=== PATIENT | female | born 1960 | race Caucasian/White ===

== ENCOUNTER → 2019-01-08 10:15 | Outpatient (CLI) | payer BC, SELFPAY ==
--- NOTE | 2019-01-08 10:17 | CA_ITS ---
PROCEDURE: 2-D M-mode and color Doppler study INDICATIONS FOR THE TEST: Chest pain COPD Heart Murmur Tobacco Smoking Palpitations Fatigue Syncope Edema Hypertension+Diabetes Mellitus Rheumatic Fever SOB DIAZ+Obesity+Hyperlipidemia+ Family History HD Additional History cad PATIENT INFORMATION HEIGHT: 60 WEIGHT:197 GENDER: Female B/P:112/76 2-D/M-MODE INTERPRETATION: 2-D MEASUREMENTS OBSERVED VALUES IN CMS Right Ventricular Dimension (RVDd) 2.9 Interventricular Septum (Thickness)(IVsd) 1.1 Left Ventricular Internal Dimensions(LVIDd) 5.2/3.9 Left Ventricular Posterior Wall (Thickness)(LVPWd) 1.1 Aortic Root 2.6 Aortic Cusp Separation 1.8 Left Atrial Dimensions (LAD) 3.8 2D 1. Left atrium is mildly enlarged, left ventricle is normal size, mild concentric left ventricular hypertrophy, visually estimated ejection fraction 55% with no regional wall motion abnormality. 2. The right atrium and right ventricle are mildly enlarged with normal contractility. 3. The aortic valve is minimally thickened and fibrosed. 4. The mitral and tricuspid valve leaflets are minimally thickened. 5. The pulmonic valve is poorly visualized. 6. No significant pericardial effusion noted. DOPPLER INTERROGATION: Doppler interrogation of the aortic, mitral and tricuspid valvular presence of mildly increased aortic out flow velocity does not represent significant aortic stenosis, there is mild mitral and tricuspid regurgitation, tricuspid and jet velocity is inadequate for admission of the right ventricular systolic pressure, grade 1 diastolic dysfunction seen with tissue Doppler evidence of raised left atrial pressure, inferior vena cava is not well visualized. CONCLUSION: 1. Mildly enlarged left atrium, normal left ventricular size, mild concentric left ventricular hypertrophy, visually estimated ejection fraction 55% no regional wall motion abnormality, grade 1 diastolic dysfunction seen with tissue Doppler evidence of raised left atrial pressure. 2. Mildly enlarged right ventricle with normal contractility. 3. Mild mitral and tricuspid regurgitation. 4. No significant pericardial effusion noted.
== END ==
PROVIDERS: PCP Family Medicine; Visit Provider Internal Medicine
DX: I25.10 Atherosclerotic heart disease of native coronary artery without angina pectoris (principal); R00.1 Bradycardia, unspecified; E78.5 Hyperlipidemia, unspecified; I10 Essential (primary) hypertension
CPT/HCPCS: 93306

== ENCOUNTER → 2021-05-05 07:51 | Outpatient (CLI) | payer BC, SELFPAY ==
--- NOTE | 2021-05-05 07:58 | US_ITS ---
PROCEDURE: US LIVER CLINICAL INDICATION: ELEVATED LIVER FUNCTION COMPARISON: No exams were available for comparison FINDINGS: PANCREAS: Unremarkable. No obvious mass or abnormal fluid collection. No ductal dilatation LIVER: Diffuse increased echogenicity of the liver with poor through transmission of sound consistent with hepatic steatosis. No focal liver lesion demonstrated. There is appropriate direction of blood flow within non dilated portal vein. RIGHT KIDNEY: There is minimal ectasia of the right renal collecting system. No renal mass apparent GALLBLADDER: No gallstones, gallbladder wall thickening, pericholecystic fluid, or biliary dilatation. IMPRESSION: Negative gallbladder. Minimal ectasia of the collecting system. Fatty liver Dictated by: Wilfred Stewart MD 05/05/2021 15:12 Wilfred Stewart MD in OV 05/05/2021 15:12
== END ==
PROVIDERS: PCP Family Medicine; Visit Provider Family Medicine
DX: R79.89 Other specified abnormal findings of blood chemistry (principal); R94.5 Abnormal results of liver function studies
CPT/HCPCS: 76705

== ENCOUNTER → 2021-06-29 08:58 | Outpatient (CLI) | payer BC, SELFPAY ==
[2021-06-29 09:57] LABS: Basophils # 0.1 K/mm3 (0-0.2); Basophils % 1.2 % (0.1-2.0); Eosinophils # 0.2 K/mm3 (0.0-0.4); Eosinophils % 2.1 % (0.1-12.0); Hemoglobin 15.1 g/dL (12.2-16.2); Lymphocytes # 3.1 K/mm3 (0.7-4.5); Mean Corpuscular HGB Conc 34.3 g/dL (31.8-35.4); Mean Corpuscular Hemoglobin 29.8 pg (27.0-31.2); Mean Platelet Volume 10.3 fl (7.4-10.4); Monocytes # 0.6 K/mm3 (0.1-1.0); Monocytes % 6.8 % (1.7-9.3); Neutrophils # 5.1 K/mm3 (1.8-7.8); Neutrophils % 55.8 % (37.0-80.0); Platelet Count 232 K/mm3 (142-424); Red Blood Count 5.06 M/mm3 (4.20-5.40); Red Cell Distribution Width 13.9 % (11.5-17.5); White Blood Count 9.2 K/mm3 (4.8-10.8)
[2021-06-29 10:07] LABS: INR 0.92 (0.9-1.1); Prothrombin Time 10.5 seconds (10.1-12.5)
[2021-06-29 10:25] LABS: Chloride 104 mmol/L (98-107)
[2021-06-29 10:26] LABS: Potassium 4.3 mmoL/L (3.5-5.1); Sodium 140 mmol/L (136-145)
[2021-06-29 10:28] LABS: Blood Urea Nitrogen 16 mg/dl (7-17); Estimated Glomerular Filt Rate 101 ml/min (>60); GFR (African American) 122 ML/MIN (>60)
[2021-06-29 10:29] LABS: Alanine Aminotransferase 34 U/L (12-78); Albumin Level 4.5 g/dl (3.5-5.0); Albumin/Globulin Ratio 1.6 (1.1-1.8); Alkaline Phosphatase 64 U/L (38-126); Anion Gap 15.3 mEq/L (5-15); Aspartate Amino Transferase 32 U/L (14-36); Bilirubin,Total 0.7 mg/dl (0.2-1.3); Calcium 9.2 mg/dl (8.4-10.2); Carbon Dioxide 25 mmol/L (22.0-30.0); Globulin 2.8 g/dL (1.3-3.2); Glucose 127 mg/dl (74-100); Iron 66 ug/dL (37-170); Total Protein,Serum 7.3 g/dl (6.3-8.2)
[2021-06-29 10:40] LABS: Total Iron Binding Capacity 445 ug/dL (265-497)
[2021-06-30 09:13] LABS: Ceruloplasmin 23.5 mg/dL (19.0-39.0); Immunoglobulin A, Qn 290 mg/dL (87-352); Immunoglobulin G, Qn 1061 mg/dL (586-1602); Immunoglobulin M, Qn 62 mg/dL (26-217)
[2021-06-30 14:31] LABS: Angiotensin Converting Enzyme 33 U/L (14-82); Liver-Kidney Microsomal Ab 4.2 Units (0.0-20.0)
[2021-06-30 15:37] LABS: Mitochondrial (M2) Antibody <20.0 Units (0.0-20.0)
[2021-06-30 16:12] LABS: Deamidated Gliadin Abs, IgA 7 units (0-19); Deamidated Gliadin Abs, IgG 1 units (0-19); Tissue Transglutaminase IgA Ab <2 U/mL (0-3); Tissue Transglutaminase IgG Ab <2 U/mL (0-5)
[2021-06-30 19:11] LABS: Endomysial IgA Antibody Negative (Negative)
[2021-07-01 02:10] LABS: ALT (SGPT) P5P 32 IU/L (0-40); AST (SGOT) P5P 25 IU/L (0-40); Alpha 2-Macroglobulins, Qn 118 mg/dL (110-276); Apolipoprotein A-1 126 mg/dL (116-209); Bilirubin, Total 0.6 mg/dL (0.0-1.2); Cholesterol, Total 130 mg/dL (100-199); Fibrosis Score 0.13 (0.00-0.21); GGT 49 IU/L (0-60); Glucose 122 mg/dL (65-99); Haptoglobin 218 mg/dL (37-355); Steatosis Score 0.82 (0.00-0.30); Triglycerides 134 mg/dL (0-149)
[2021-07-01 06:11] LABS: Reticulin IgA Antibody Negative titer (Neg:<1:2.5)
[2021-07-04 15:32] LABS: Alpha-1-Antitrypsin 135 mg/dL (101-187)
[2021-07-14 15:35] LABS: Antinuclear Antibodies (ANA) NEGATIVE
== END ==
PROVIDERS: Visit Provider Nurse Practitioner Family
DX: R74.8 Abnormal levels of other serum enzymes (principal)
CPT/HCPCS: 36415; 80053; 81256; 82103; 82104; 82164; 82390; 82784; 83516; 83540; 83550; 85025; 85610; 86038; 86255; 86256; 86376

== ENCOUNTER → 2021-08-12 09:03 | Outpatient (CLI) | payer BC, SELFPAY ==
[2021-08-12 10:31] LABS: Ferritin 46.4 ng/ml (11.1-264)
[2021-08-13 08:18] LABS: Hep A Ab, IgM Negative (Negative); Hepatitis B Core Antibody IgM Negative (Negative); Hepatitis B Surface Antigen Negative (Negative); Hepatitis C Antibody <0.1 s/co ratio (0.0-0.9)
[2021-08-13 16:25] LABS: Actin (Smooth Muscle) Antibody 4 Units (0-19)
== END ==
PROVIDERS: PCP Family Medicine; Visit Provider Nurse Practitioner Family
DX: K76.0 Fatty (change of) liver, not elsewhere classified (principal); R94.5 Abnormal results of liver function studies; E66.9 Obesity, unspecified; Z68.37 Body mass index [BMI] 37.0-37.9, adult
CPT/HCPCS: 80074; 82728; 86255

== ENCOUNTER → 2021-09-21 08:36 | Outpatient (CLI) | payer BC, SELFPAY ==
[2021-09-21 09:27] LABS: Alanine Aminotransferase 25 U/L (12-78); Albumin Level 4.7 g/dl (3.5-5.0); Albumin/Globulin Ratio 1.7 (1.1-1.8); Alkaline Phosphatase 59 U/L (38-126); Anion Gap 12.5 mEq/L (5-15); Aspartate Amino Transferase 24 U/L (14-36); Bilirubin,Total 0.8 mg/dl (0.2-1.3); Blood Urea Nitrogen 16 mg/dl (7-17); Calcium 9.2 mg/dl (8.4-10.2); Carbon Dioxide 28 mmol/L (22.0-30.0); Chloride 102 mmol/L (98-107); Estimated Glomerular Filt Rate 101 ml/min (>60); GFR (African American) 122 ML/MIN (>60); Globulin 2.7 g/dL (1.3-3.2); Glucose 108 mg/dl (74-100); Potassium 3.5 mmoL/L (3.5-5.1); Sodium 139 mmol/L (136-145); Total Protein,Serum 7.4 g/dl (6.3-8.2)
== END ==
PROVIDERS: Visit Provider Nurse Practitioner Family
DX: K75.81 Nonalcoholic steatohepatitis (NASH) (principal)
CPT/HCPCS: 36415; 80053

== ENCOUNTER 2023-08-02 10:19 | Outpatient (CLI) | payer MEDICARE, SELFPAY ==
--- NOTE | 2023-08-02 10:22 | CA_ITS ---
APPROVED REPORT EXAM: Comprehensive 2D, Doppler, and color-flow Echocardiogram Radio Equipment Installer: MI Lawson, RVS Ht: 4 ft 11 in Wt: 193lbs BSA: 1.82 BP: 198/62 mmHg Indications: DM, SOB, Murmur, HTN, HLD, Obesity 2D Dimensions Left Atrium 3.05 cm LA Volume 48.20 mL LA Volume Index 25.90 mL/m2 (M/F) 16-34 M-Mode Dimensions RVDd 3.49 cm (0.9-2.6) LA Diam 4.12 cm (1.9-4.0) LVDd 5.10 cm (3.5-5.7) LVDs 2.75 cm (3.5-5.7) IVSd 0.91 cm (0.6-1.1) PWd 0.91 cm (0.6-1.1) EF (Teich) 77.10% EPSs 0.24 cm FS 46.10% EDV (Teich) 123.80 mL TAPSE 2.32 (<1.7) ESV (Teich) 28.30 mL LV Diastology E Decel Time 177 (160-240 msec) E/A Ratio 0.85 MED A' 13.30 cm/s LAT A' 13.90 cm/s Aortic Valve MARSHALL Index 0.76 cm2/m2 AoV Peak Aleksey. 248.0 (50-130 cm/s) AO Peak GR. 24.50 mmHg AO Mean GR. 12.40 (<5 mmHg) AO VTI 60.0 (18-25 cm) MARSHALL (VTI) 1.42 (2.5-4.5 cm2) Mitral Valve MV A Velocity 138.0 (40-130 cm/s) E/A Ratio 0.85 Tricuspid Valve TR P. Velocity 208.00 cm/s RAP Estimate 10.00 mmHg RVSP 27.20 mmHg Left Ventricle The left ventricle is normal size. The left ventricular systolic function is normal. The left ventricular ejection fraction is within the normal range. There is increased left ventricular wall thickness. Proximal septal thickening is noted. There is no LVOT gradient noted at rest. There is normal LV segmental wall motion. The left ventricular diastolic function is normal. LVEF is 60%. Right Ventricle The right ventricle is normal size. The right ventricular systolic function is normal. Atria The left atrium size is normal. The right atrium size is normal. There is no Doppler evidence of interatrial shunt. Aortic Valve The aortic valve is mildly thickened. Aortic sclerosis is present (peak transaortic velocity 2.4 m/s), but no evidence of aortic stenosis. Trace aortic regurgitation. Mitral Valve The mitral valve is normal in structure. No evidence of mitral valve stenosis. Mild mitral regurgitation. Tricuspid Valve The tricuspid valve leaflets are thin and pliable. Trace tricuspid regurgitation. There is insufficient TR jet to estimate RVSP. Pulmonic Valve The pulmonary valve is normal in structure. Trace pulmonic regurgitation. Great Vessels The aortic root is normal in size. The ascending aorta is normal in size. IVC is normal in size and collapses >50% with inspiration. Pericardium There is no pericardial effusion. An epicardial fat pad is noted. Other Information Study Quality: Fair Conclusion Normal biventricular systolic function. Mild MR. Aortic sclerosis, but no evidence of aortic stenosis. Of note, the patient's BP during the acquisition of the study images was HM=236/62 mmHg. Electronically signed by : Keri Hills MD 08/05/2023 17:38:36
== END 2023-08-02 23:59 ==
LOC: RT 10:19
PROVIDERS: PCP Nurse Practitioner Family; Visit Provider Nurse Practitioner
DX: E11.9 Type 2 diabetes mellitus without complications (principal); E78.5 Hyperlipidemia, unspecified; I10 Essential (primary) hypertension; I25.10 Atherosclerotic heart disease of native coronary artery without angina pectoris; R00.1 Bradycardia, unspecified; R94.31 Abnormal electrocardiogram [ECG] [EKG]
CPT/HCPCS: 93306

== ENCOUNTER 2023-12-19 09:47 | Outpatient (CLI) | payer MEDICARE, SELFPAY ==
[2023-12-19 15:45] LABS: Chloride 100 mmol/L (98-107); Potassium 4.8 mmoL/L (3.5-5.1); Sodium 138 mmol/L (136-145)
[2023-12-19 15:47] LABS: Alanine Aminotransferase 38 U/L (12-78); Alkaline Phosphatase 67 U/L (38-126); Aspartate Amino Transferase 35 U/L (14-36); Blood Urea Nitrogen 19 mg/dl (7-17); Estimated Glomerular Filt Rate 100 ml/min (>60); GFR (African American) 121 ML/MIN (>60)
[2023-12-19 15:48] LABS: Albumin Level 4.9 g/dl (3.5-5.0); Albumin/Globulin Ratio 1.4 (1.1-1.8); Anion Gap 15.8 mEq/L (5-15); Calcium 9.8 mg/dl (8.4-10.2); Carbon Dioxide 27 mmol/L (22.0-30.0); Chol/HDL Ratio 2.6 (1-3.5); Cholesterol 170 mg/dl (140-200); Globulin 3.6 g/dL (1.3-3.2); Glucose 104 mg/dl (74-100); HDL Cholesterol 66 mg/dl (40-60); Total Protein,Serum 8.5 g/dl (6.3-8.2); Triglycerides 139 mg/dl (30-150); VLDL Cholesterol 28 mg/dL (0-40)
[2023-12-19 15:59] LABS: Direct LDL Cholesterol 87.75 mg/dL (100-129)
[2023-12-19 16:17] LABS: Thyroid Stimulating Hormone 2.23 uIU/mL (0.465-4.68)
[2023-12-19 18:21] LABS: Hemoglobin A1C 6.3 % (4.0-6.0)
== END 2023-12-19 23:59 | disposition home or self-care (01) ==
LOC: LAB.DROPOF 12-20 09:48
PROVIDERS: PCP Nurse Practitioner Family; Visit Provider Nurse Practitioner Family
DX: E11.9 Type 2 diabetes mellitus without complications (principal); E78.2 Mixed hyperlipidemia; I10 Essential (primary) hypertension; Z79.84 Long term (current) use of oral hypoglycemic drugs
CPT/HCPCS: 80053; 80061; 83036; 84443

== ENCOUNTER 2024-01-04 17:43 | Outpatient (CLI) | payer MEDICARE, SELFPAY ==
[2024-01-04 18:54] LABS: Microalbumin < 6.000 mg/L (0-16.7)
== END 2024-01-04 23:59 | disposition home or self-care (01) ==
PROVIDERS: PCP Nurse Practitioner Family; Visit Provider Nurse Practitioner Family
DX: E11.9 Type 2 diabetes mellitus without complications (principal); Z79.84 Long term (current) use of oral hypoglycemic drugs
CPT/HCPCS: 82043

== ENCOUNTER 2024-08-08 13:33 | Outpatient (CLI) | payer MEDICARE, SELFPAY ==
[2024-08-08 13:32] LABS: Creatinine,Urine Random 40 mg/dL (Not Estab.)
[2024-08-08 13:48] LABS: Alanine Aminotransferase 62 U/L (12-78); Albumin Level 5.1 g/dl (3.5-5.0); Albumin/Globulin Ratio 1.8 (1.1-1.8); Alkaline Phosphatase 68 U/L (38-126); Anion Gap 18.1 mEq/L (5-15); Aspartate Amino Transferase 54 U/L (14-36); Bilirubin,Total 0.8 mg/dl (0.2-1.3); Blood Urea Nitrogen 18 mg/dl (7-17); Calcium 9.8 mg/dl (8.4-10.2); Carbon Dioxide 27 mmol/L (22.0-30.0); Chloride 98 mmol/L (98-107); Chol/HDL Ratio 2.9 (1-3.5); Cholesterol 161 mg/dl (140-200); Estimated Glomerular Filt Rate 100 ml/min (>60); GFR (African American) 121 ML/MIN (>60); Globulin 2.9 g/dL (1.3-3.2); Glucose 144 mg/dl (74-100); HDL Cholesterol 56 mg/dl (40-60); Magnesium 1.8 mg/dl (1.6-2.3); Potassium 4.1 mmoL/L (3.5-5.1); Sodium 139 mmol/L (136-145); Triglycerides 96 mg/dl (30-150); VLDL Cholesterol 19 mg/dL (0-40)
[2024-08-08 13:49] LABS: Hemoglobin A1C 6.8 % (4.0-6.0)
[2024-08-08 13:59] LABS: Direct LDL Cholesterol 88.34 mg/dL (100-129)
[2024-08-08 14:19] LABS: Thyroid Stimulating Hormone 0.23 uIU/mL (0.465-4.68)
[2024-08-11 17:52] LABS: Free T4 (Free Thyroxine) 1.57 ng/dl (0.78-2.19); T4 (Thyroxine) 9.9 ug/dl (5.53-11.0)
[2024-08-12 03:42] LABS: Triiodothyronine (T3) Free 2.9 pg/mL (2.0-4.4)
== END 2024-08-08 23:59 | disposition home or self-care (01) ==
LOC: LAB.DROPOF 13:34
PROVIDERS: PCP Nurse Practitioner Family; Visit Provider Nurse Practitioner Family
DX: E11.9 Type 2 diabetes mellitus without complications (principal); E78.2 Mixed hyperlipidemia; I10 Essential (primary) hypertension; R79.89 Other specified abnormal findings of blood chemistry
CPT/HCPCS: 80053; 80061; 82043; 82570; 83036; 83735; 84436; 84439; 84443; 84481

== ENCOUNTER 2024-09-04 10:21 | Outpatient (CLI) | payer MEDICARE, SELFPAY ==
[2024-09-04 10:36] LABS: Basophils # 0.1 K/mm3 (0-0.2); Basophils % 0.8 % (0.1-2.0); Eosinophils # 0.2 K/mm3 (0.0-0.4); Eosinophils % 1.7 % (0.1-12.0); Hematocrit 47.8 % (37.0-47.0); Hemoglobin 15.2 g/dL (12.2-16.2); Lymphocytes % 32.1 % (10-50); Mean Corpuscular HGB Conc 31.8 g/dL (31.8-35.4); Mean Corpuscular Hemoglobin 27.9 pg (27.0-31.2); Mean Corpuscular Volume 87.7 fl (81-99); Mean Platelet Volume 11.1 fl (7.4-10.4); Monocytes # 1.1 K/mm3 (0.1-1.0); Monocytes % 11.1 % (1.7-9.3); Neutrophils # 5.1 K/mm3 (1.8-7.8); Platelet Count 212 K/mm3 (142-424); Red Blood Count 5.45 M/mm3 (4.20-5.40); Red Cell Distribution Width 14.3 % (11.5-17.5); White Blood Count 9.5 K/mm3 (4.8-10.8)
[2024-09-04 10:40] LABS: Albumin Level 4.7 g/dl (3.5-5.0); Chloride 100 mmol/L (98-107); Potassium 3.6 mmoL/L (3.5-5.1); Sodium 138 mmol/L (136-145)
[2024-09-04 10:43] LABS: Alanine Aminotransferase 45 U/L (12-78); Alkaline Phosphatase 64 U/L (38-126); Anion Gap 13.6 mEq/L (5-15); Aspartate Amino Transferase 39 U/L (14-36); Bilirubin,Indirect 0.5 mg/dL (0.0-0.9); Bilirubin,Total 0.5 mg/dl (0.2-1.3); Bilirubin,Unconjugated 0.5 mg/dL (0.0-1.1); Blood Urea Nitrogen 19 mg/dl (7-17); Calcium 9.5 mg/dl (8.4-10.2); Carbon Dioxide 28 mmol/L (22.0-30.0); Cholesterol 143 mg/dl (140-200); Estimated Glomerular Filt Rate 84 ml/min (>60); GFR (African American) 101 ML/MIN (>60); Glucose 124 mg/dl (74-100); Total Protein,Serum 8.2 g/dl (6.3-8.2); Triglycerides 147 mg/dl (30-150); VLDL Cholesterol 29 mg/dL (0-40)
[2024-09-04 10:44] LABS: Chol/HDL Ratio 3.7 (1-3.5); HDL Cholesterol 39 mg/dl (40-60); Magnesium 1.7 mg/dl (1.6-2.3)
[2024-09-04 10:55] LABS: Direct LDL Cholesterol 64.57 mg/dL (100-129)
[2024-09-04 11:23] LABS: T4 (Thyroxine) 9.5 ug/dl (5.53-11.0)
[2024-09-04 11:37] LABS: Thyroid Stimulating Hormone 2.09 uIU/mL (0.465-4.68)
[2024-09-04 11:47] LABS: Free Thyroxine Index 3.2 ug/dL (5.93-13.13); Triiodothryronine (T3) Uptake 34 % (23.5-40.5)
== END 2024-09-04 23:59 | disposition home or self-care (01) ==
LOC: LAB 10:23
PROVIDERS: PCP Nurse Practitioner Family; Visit Provider Internal Medicine
DX: I10 Essential (primary) hypertension (principal); I25.10 Atherosclerotic heart disease of native coronary artery without angina pectoris; R00.1 Bradycardia, unspecified; E78.5 Hyperlipidemia, unspecified; E11.9 Type 2 diabetes mellitus without complications
CPT/HCPCS: 36415; 80048; 80061; 80076; 83735; 84436; 84443; 84479; 85025

== ENCOUNTER 2025-03-24 12:51 | Outpatient (CLI) | payer MEDICARE, SELFPAY ==
--- OUTSIDE RECORDS SUMMARY | 2025-03-24 12:55 | XMS_ITS | Clinical Summary ---
[facility] Address [address] [place] [address] Care Team Providers Care Price Clerk Name Role Phone Stella Sanchez APRN Primary Care Provider [phone] Allergies Active Allergy Reactions Criticality Noted Date Comments Erythromycin GI Intolerance Low 08/03/2020 Penicillins Rash Low 12/17/2015 Medications aspirin 81 MG EC tablet Take 1 tablet by mouth Daily. Active Wrights-3 Fatty Acids (FISH OIL) 1000 MG capsule capsule Take 2 capsules by mouth Daily With Breakfast. Active Accu-Chek Ashley Plus test strip 03/09/2021 Act roberto rosuvastatin (CRESTOR) 10 MG tablet Take 1 tablet by mouth Every Night. 01/07/2021 Active VITAMIN E PO Take 800 Units by mouth Daily. 06/29/2021 Active dapagliflozin-m etformin HCl ER (Xigduo XR) 5-1000 MG tabletIndicatio ns:Poorly controlled diabetes mellitus Take 2 tablets by mouth Daily. 180 tablet 1 01/04/2022 Active losartan (COZAAR) 100 MG tablet TAKE 1 TABLET BY MOUTH ONCE DAILY 90 tablet 04/28/2022 Active amLODIPine (NORVASC) 10 MG tablet 1 tablet. 03/19/2024 Active hydroCHLOROthia zide 50 MG tablet 1 tablet. 03/19/2024 Active Active Problems Problem Noted Date Diagnosed Date Encounter for gynecological examination without abnormal finding 07/11/2024 Class 1 obesity with body ma ss index (BMI) of 33.0 to 33.9 in adult 05/04/2021 Endometrial cancer 05/03/2021 Cancer Staging:Clinical stage from 05/04/2021:Stage I(T1, N0, M0) - Signed by Camilla Ramesh MD on 05/04/2021 Pathologic stage from 05/19/2021:FIGO Stage IB(pT1b, pN0, cM0) - Signed by Marilee Macias APRN on 09/05/2021 Family History Medical History Relation Name Comments Heart attack Father Diabetes Mother Hypertension Mother Breast cancer Neg Hx Colon cancer Neg Hx Ovarian cancer Neg Hx Uterine cancer Neg Hx Relation Name Status Comments Father Mother Alive Social History Tobacco Use Types Packs/Day Years Used Date Smoking Tobacco: Never Smokeless Tobacco: Never Tobacco Cessation:Counseling Given: Not Answered Alcohol Use Standard Drinks/Week Comments Yes 0 (1 standard drink = 0.6 oz pur e alcohol) occasional AUDIT-C Answer Date Recorded Q1: How often do you have a drink containing alc ohol? 2-4 times a month 08/03/2020 Q2: How many drinks containi ng alcohol do you have on a typical day when you are drinking? 3 or 4 08/03/2020 Frequency of Binge Drinking Not on file 07/16 PHQ-2 Answer Date Recorded Retired PHQ-9: Brief Depression Severity Measure Score 0 06/19/2023 PHQ-2 Answer Date Recorded Patient Health Questionnaire-2 Score 0 07/11/2024 Comments No Sex and Gender Information Value Date Recorded Sex Assigned at Not on file Legal Sex Female 10:09 AM EDT Gender Identity Not on file Sexual Orientation Not on file Last Filed Vital Signs Vital Sign Reading Time Taken Comments Blood Pressure 140/85 07/11/2024 1:31 PM EST Pulse 82 07/11/2024 1:31 PM EST Temperature 36.4 C (97.5 F) 07/11/2024 1:31 PM EST Respiratory Rate 17 07/11/2024 1:31 PM EST Oxygen Saturation 95% 07/11/2024 1:31 PM EST Inhaled Oxygen Concentration - - Weight 88.5 kg (195 lb 1.6 oz) 07/11/2024 1:31 P M EST Height 157.5 cm (5' 2.01 ) 07/11/2024 1:31 PM ES T Body Mass Index 35.68 07/11/2024 1:31 PM EST Plan of Treatment Upcoming Encounters Date Type Department Care Team (Late st Contact Info) Description 07/13/2025 2:30 PM EST Office Visit [facility] [address] [facility] [address] [place] [address] Magalie Aniasteven Cristobal, MARLIN [address] [facility] [address] [place] [address] Health Maintenance Due Date Last Done Comments DXA SCAN 1958 TDAP/TD VACCINES (1 - Tdap) 1977 COLOGUARD 2003 COLON CANCER SCREENING 5 YEA R SIGMOIDOSCOPY 2003 CT COLONOGRAPHY 2003 FECAL OCCULT BLOOD TEST 2003 FIT Testing (1 year) 2003 Pneumococcal Vaccine 50+ (1 of 1 - PCV) 02/25/2008 ZOSTER VACCINE (1 of 2) 02/25/2008 ANNUAL WELLNESS VISIT 10/22/2017 HEPATITIS C SCREENING 10/22/2017 COVID-19 Vaccine (4 - 2024-2 6 season) 2025 06/29/2021, 09/26/2020, 08/29/2020 INFLUENZA VACCINE 04/15/2025 MAMMOGRAM 12/04/2025 12/06/2023, 11/14, 06/13/2022, Additional history exists COLONOSCOPY 08/14/2027 08/14/2022, 10/03/2016 COLORECTAL CANCER SCREENING 08/14/2027 HEMOGLOBIN A1C Discontinued 05/09/2021 Medical Devices Implanted Type Area Conservation Technician Device Identifier Shelf Expiration Date Model / Serial / Lot Kt Seal Hemos Abs Floseal Matrx Fast/Prep 5ml - [id number] Implanted:Qty : 1 on 05/16/2021 by Camilla Ramesh MD at [facility] Implant N/A: Abdomen [employer] You 11/09/2022 [id number] / / [id number] Procedures Procedure Name Priority Date/Time Associated Diagnosis Comments MAMMO SCREENING DIGITAL TOMOSYNTHESIS BILATERAL W CAD Routine 12/05/2023 10:14 AM EDT Screening mammogram for breast cancer SCANNED - COLONOSCOPY 08/14/2022 HEMOGLOBIN A1C Add-On 05/09/2021 11:25 AM EDT from Last 3 Months or Most Recently Relevant to Health Maintenance Results * Mammo Screening Digital Tomosynthesis Bilateral With CAD (12/05/2023 10:14 AM EDT) Anatomical Region Laterality Modality Breast N/A Mammography 12/06/2023 1:50 PM EDT Impressions 12/06/2023 1:52 PM EDT Negative bilateral mammogram. RECOMMENDATION: Continue annual screening mammography. BI-RADS CATEGORY 1, NEGATIVE. CAD was utilized. The standard false-negative rate of mammography is between 10% and 25%. Complex patterns or increased breast density will markedly elevate the false-negative rate of mammography. A letter, in lay terminology, with the results of this exam will be mailed to the patient. This report was finalized on 12/06/2023 1:[address] Himanshu White MD. Narrative 12/06/2023 1:52 PM EDT DIGITAL SCREENING MAMMOGRAM WITH TOMOSYNTHESIS HISTORY: Screening Mammography. Low dose full field digital breast tomosynthesis imaging was performed with 2D and 3D acquisitions consisting of bilateral CC and MLO views. Examination is compared to prior examination dating back to 10/07/2014. Examination is read in conjunction with computer aided detection. FINDINGS: There are scattered areas of fibroglandular density. No suspicious masses, microcalcifications or areas of architectural distortion are present. Camilla Ramesh MD IM MAMMOGRAPHY ORDERABLES F inal Result * SCANNED - COLONOSCOPY (08/14/2022) Kyrie Gómez MD CHART REVIEW TABS Final Res ult * (ABNORMAL) Hemoglobin A1c (05/09/2021 11:25 AM EDT) Hemoglobin A1C 6.50(H) 4.80 - 5.60 % 05/09/2021 12:34 PM EDT [facility] Blood Venipuncture / Unknown 05/09/2021 11:25 AM EDT 05/09/2021 11:41 AM EDT Narrative [facility] - 05/09/2021 12:34 PM EDT Hemoglobin A1C Ranges: Increased Risk for Diabetes 5.7% to 6.4% Diabetes >= 6.5% Diabetic Goal < 7.0% Camilla Ramesh MD LAB BLOOD ORDERABLES Final R esult [facility]
[address] [place] [address], from Last 3 Months or Most Recently Relevant to Health Maintenance Insurance [employer] PPO Care Teams Price Clerk Relationship Specialty Start Date End Date Stella Sanchez APRN PCP - General Internal Medicine 06/06/22
--- OUTSIDE RECORDS SUMMARY | 2025-03-24 12:55 | XMS_ITS ---
Author Organization [facility] Address [address] [place] [address] Care Team Providers Care Core Blower Name Role Phone Jovanna Sancheznirashad ISAAC Primary Care Provider [phone] Active Problems Problem Noted Date Diagnosed Date [...] Signed by Marilee Macias APRN on 09/05/2021 Current Treatment and Therapy Plans No current plan information found. Past Treatment and Therapy Plans No past plan information found. Treatment Summaries Endometrial cancer* Images from the original note were not included. Endometrial Cancer Survivorship Plan General Information Patient name Kristi Ortiz Date of 1960 Phone Email [email or web address] Cancer Treatment Team Provider Phone numbers Care Team Provider: Milo Drummond MD Care Team Provider: Tom Walker MD, ([phone]) Care Team Provider: Camilla Ramesh MD, ([phone]) Care Team Provider: Marilee Macias APRN, ([phone]) Post Treatment Care Team Primary Care Physician Vincent Bobo MD [address] [facility] [address] Background Information Family oncology history Cancer-related family history is negative for Breast cancer, Ovarian cancer, Uterine cancer, and Colon cancer. 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 No further genetics needed. Cancer Diagnosis Information Diagnosis Endometrial cancer (HCC) Diagnosed upon D&C due to postmenopausal bleeding Diagnosis date April 2021 Staging information Stage IB Grade Grade I Histology Endometrioid Adenocarcinoma Tumor marker at [facility] N/A Initial Surgery Yes, 05/16/2021 Procedure Type 1 radical total laparoscopic hysterectomy, bilateral salpingo- oophorectomy, and complete bilateral pelvic lymphadenectomy Significant Pathology Grade 1 endometrioid tumor invasive into >50% (20/33 mm) myometrium. No lymphvascular invasion. Nodes and all other structures negative. Neoadjuvant Chemotherapy N/A Regimen Adjuvant Chemotherapy No Regimen Radiation Therapy No Regimen Treatment on Clinical Trial N/A Complications / Modifications None Completion of Primary Therapy Date: 05/16/2021 (surgery date) Disease Status Complete Clinical Response / No Evidence of Disease Persistent Treatment-Associated Adverse Effects at Completion of Therapy It is important to recognize that not every woman experiences the following adverse events after treatment. You may not have any of these issues, a few, or many adverse effects. Experiences are highly variable. Please discuss any adverse effects of cancer treatment with your cancer care team. []After Surgical Therapy Menopausal symptoms: hot flashes, night sweats, irritability, insomnia, and vaginal dryness may occur. See your health care provider about non-medication recommendations and medication-based treatments. Leg swelling: Minimal to pronounced lower leg swelling can occur. Symptom control with compression hose, lymphedema massage, or specialized physical therapy can be ordered. Leg swelling can also be an indication of post-operative complications and should be evaluated by your provider. Sexual intimacy issues: Vaginal dryness and scarring at the top of the vagina causing discomfort can occur. Decreased sexual desire can also occur. Use of a lubricant can help prevent or improve vaginal symptoms. If symptoms persist, talk to your provider about alternate treatments. It is not uncommon for cancer to impact other areas of your life such as relationships, work, spirituality, and mental health. If you develop financial concerns, resources are sometimes available to assist in these areas. Depression and anxiety can present either during or after cancer diagnosis and treatment. It is important to discuss with you physician any of these concerns so these resources can be made available to you. Society of Gynecologic Oncology Recommendations What you can do to stay healthy after treatment: Cancer treatments may increase your chance of developing other health problems years after you havecompleted treatment. You can take steps to maintain good health after cancer treatment, including coping with side effects of treatment, reducing the risk of cancer returning, and watching for signs of cancer returning or of a new cancer. Keep in mind that every person treated for cancer is different and that these recommendations are not intended to be a substitute for the advice of a doctor or other health pharmacy care coordinator. Please use these recommendations to talk with your doctor and healthcare team about and appropriate follow-up care plan for you. Recommendation for Follow-up for Endometrial Cancer: Have a medical history and physical exam that is focused on detecting signs of cancer recurrence orof new cancers, including a detailed pelvic exam (speculum, pelvic and rectovaginal; however, a routine Pap smear is not recommended for routine cancer follow up). Frequency depends on stage of cancer and other risk factors. For instance, if you had a higher stage of cancer, you may be seen more often. See the table below for general guidelines. If you had endometrial cancer once, there is a chance that it may come back or spread to other parts of your body. The risk is highest in the first two to three years after treatment, but continues for at least five years. After five years, it is recommended that you have a careful history and physical including pelvic exam (check-up) every 12 months for the rest of your life. After cancer treatment, if you feel that something is not right with your body, see your regular doctor, physician assistant farm operations manager or nurse practitioner. Symptoms to report to your health care team includeabdominal distension, feeling full easily, new and persistent nausea and vomiting, bloating, vaginal bleeding, rectal bleeding, weight loss without effort, new and persistent pain, new and persistentfatigue, new masses (i.e., bumps in your neck or groin), new and persistent cough and any other concerns. If what you are feeling is urgent, and you cannot get an appointment with your regular healthcare team, go to an Urgent Care or Medical Walk-In Clinic. Tell the medical provider you had cancer. Show them a copy of your endometrial cancer treatment summary. Endometrial Cancer Follow-up and Survivorship Care How Frequent? Coordinating Provider Gynecologic Oncology visits Every 3 months for the first year, then every 6 months until the [address] Camilla Ramesh & Marilee Macias APRN Lab tests No routine labs Imaging exams No routine imaging. CT scan for new concerning symptoms or abnormal findings on physical exam Call your doctor if you have any of these signs or symptoms: Vaginal bleeding, pelvic pain, concerning lesions or changes in bowel or bladder function Referrals provided There are no referral needs at this time. General Cancer Screening for Women Cancer screening tests are designed to find cancer or pre-cancerous areas before there are any symptoms and, generally, when treatments are most successful. Various organizations have developed guidelines for cancer screening for women. While these guidelines vary slightly between different organizations, they cover the same basic screening tests for breast, cervical and colorectal cancers. Your health care provider may also evaluate for cancers of the skin, mouth, and thyroid. You should discuss which recommendations and screening tests are right for you. Not all tests are right for every patient. Your personal cancer history may direct your provider to override the general recommendations. The [place] [employer] Society (ACS) cancer screening guidelines for women: Breast Cancer: Yearly mammograms for women over 40. Women 55 and older should switch to mammograms every 2 years, or may continue yearly screenings. This should continue as long as the woman is in good health. Some women - because of family history, a genetic tendency, or certain other factors - should be screened with MRIs along with mammograms. The number of women who fall into this category is very small. Talk with a health care provider about your personal history and whether you qualify for early or more advanced screening. Know how your breasts normally feel and report any breast changes to your doctor right away. Colon and Rectal Cancer: Starting at age 45, women should follow one of these testing plans. If you are at high risk, based upon personal or family history, you may need to begin screenings early or have them done more often. Talk with a health care provider about the testing plan that is best for you. Tests that find polyps and cancer: Colonoscopy every 10 years (This is the ???gold standard?? ) Flexible sigmoidoscopy every 5 years Double-contrast barium enema every [address] colonography (virtual colonoscopy) every 5 years Tests that mostly find cancer: Yearly guaiac-based fecal occult blood test (gFOBT) Yearly fecal immunochemical test (FIT) Stool DNA test (sDNA) every 3 years Tests that can find both early cancer and polyps should be your first choice if available and you are willing to have one of them. If any of the alternative tests are chosen and there are positive findings, a colonoscopy should be done Multiple stool take home tests should be used for the gFOBT or FIT tests. One test in the office isnot enough. If these are positive, a colonoscopy should be done. Cervical Cancer: Screening should begin at age 21 with a Pap test every 3 years. HPV testing should be only used in women 21-29 if needed after an abnormal result. Women 30-65 may have a Pap test plus and HPV test (???co-testing?? ) every 5 years Women over 65 with a negative history or who have had regular cervical cancer testing within the past 10 years may discontinue screenings. If there is a history of serious cervical pre-cancer, testing should continue for at least 20 years even if it goes past age 65. All women who have been vaccinated against HPV should still follow the screening recommendations for their age group. Some women - because of their health history - may need a different screening schedule or continuedscreenings after a total hysterectomy. Your health care provider will help to determine the best screening schedule for you. Healthy Lifestyle For some cancer survivors, the experience is the impetus to making healthy lifestyle changes. It may seem insignificant, but these changes have been shown to reduce the risk of the cancer coming backor a new cancer developing. Below are some tips on adopting a healthier lifestyle. Practice sun safety: Skin cancer is the most commonly diagnosed type of cancer, and rates are on the rise. It affects both light and dark-skinned people. In most cases, however, it can be prevented or detected early. Exposure to ultraviolet (UV) rays, either by natural sunlight or tanning beds, can lead to skin cancer. In addition, UV rays lead to other forms of skin damage, including wrinkles, loss of skin elasticity, dark patches (sometimes called age spots or liver spots), and pre-cancerous skin changes (such as dry, scaly, rough patches). Sun safety is primary form of prevention: use a broad spectrum sunscreen, avoid peak sun times whenrays are strongest (10 am to 4 pm), wear protective clothing, and avoid tanning beds Examine your skin regularly and have a health care provider examine any concerning areas of moles that have changed. Many dermatologists recommend a yearly head-to-toe skin check. Maintain a healthy weight: Being overweight can increase your chance of your cancer coming back. It can also increase your chance of developing heart disease, diabetes, and stroke. Weight management is different for each woman. You should talk to your health care provider about what a healthy weight is for you, and take steps to reach and maintain that weight. Reaching ideal weight can be challenging for many people. However, losing even 5 to 10 pounds can lower blood pressure, blood sugar, and cholesterol levels. Eat a healthy diet: A healthy diet includes plenty of fruits and vegetables daily. Strive to have two-thirds of your plate be vegetables, fruits, whole-grains or beans. Limit red meats and processed foods. Fish, chicken, and turkey are healthier choices. One-third or less of your plate should be animal products. Drink more water. Limit sodas, juices, and alcohol. Exercise regularly: Experts recommend at least 30 minutes of ysrjqlpr-um-fjygehxd activity 5 days per week. This can help control weight, improve energy level, and improve sleep. Exercise routines should be tailored to individual patients. They judge is to find an activity that you enjoy (dancing, walking, gardening, etc.) and do it regularly. If you have been inactive for a while, start out slow. Talk to your health care provider about and exercise program that will be beneficial and safe for you. Keep your bones healthy: Screening for osteoporosis typically begins at age 65 or younger if your fracture risk is increased. Women can lose up to 20 percent of their bone density after menopause. Certain cancer treatments, such as chemotherapy or hormonal therapy, can cause bone loss. Eating healthy, regular weight bearing exercise, and getting enough calcium and vitamin D can all help to maximize bone density, preventing fracture and osteoporosis. Avoid tobacco in any form: If you use tobacco of any kind, quit as soon as possible. Continued smoking can lead to recurrence of some cancers and is related to many devastating health conditions Smoking is the most preventable cause of in the [place]. Ask your doctor about smoking cessation or call the national hotline at 3-472-JULM-NOW Have regular check-ups: Keep up-to-date on recommended health screening tests, regular blood work, and vaccinations. Get a flu shot annually. Get the pneumococcal vaccine as recommended by your health care team. Don???t forget dental and eye health. The [place] [employer] Association recommends adults see their dentist at least once per year. The [place] Opt[employer] Association recommends adults have their eyesexamined every two years until age 60, then annually. If you wear corrective lenses, have diabetes,or have a family history of eye disease it may be recommended that you be seen more frequently. 7 [facility] [address] [address]
--- NOTE | 2025-03-24 13:00 | CA_ITS ---
APPROVED REPORT EXAM: Comprehensive 2D, Doppler, and color-flow Echocardiogram Mobile Home Set Up Person: Glendy Bruno RDCS Ht: 4 ft 11 in Wt: 179lbs BSA: 1.76 BP: 130/70 mmHg Indications: LV FXN PRE OP M-Mode Dimensions RVDd 1.90 cm (0.9-2.6) LA Diam 4.27 cm (1.9-4.0) LVDd 5.41 cm (3.5-5.7) LVDs 3.58 cm (3.5-5.7) IVSd 0.82 cm (0.6-1.1) PWd 0.72 cm (0.6-1.1) EF (Teich) 62.20% FS 33.80% EDV (Teich) 141.90 mL ESV (Teich) 53.70 mL LV Diastology E Decel Time 353 (160-240 msec) E/A Ratio 0.7 Mitral Valve MV E Max Aleksey. 80.0 (40-130 cm/s) MV A Velocity 110.0 (40-130 cm/s) E/A Ratio 0.73 MV PHT 103.0 ms Left Ventricle The left ventricle is normal size. Left ventricular systolic function is normal. The left ventricular ejection fraction is within the normal range. Proximal septal thickening is present. There is normal LV segmental wall motion. The left ventricular diastolic function is normal. LVEF is 55%. Right Ventricle The right ventricle is mildly dilated. The right ventricular systolic function is normal. Atria The left atrium is mildly dilated. The right atrium is mildly dilated. There is no color Doppler evidence of interatrial shunt. Aortic Valve The aortic valve opens well. There is no hemodynamically significant aortic valvular stenosis. Trace aortic regurgitation is present. Mitral Valve The mitral valve is normal in structure. No evidence of mitral valve stenosis. Mild mitral regurgitation is present. Tricuspid Valve The tricuspid valve leaflets are thin and pliable. Mild tricuspid regurgitation. RVSP is 20-25 mmHg. Pulmonic Valve The pulmonary valve is grossly normal in structure. Trace pulmonic valve regurgitation is present. Great Vessels The aortic root is normal in size. IVC is normal in size and collapses >50% with inspiration. Pericardium There is no pericardial effusion. Other Information Study Quality: Fair Conclusion Normal biventricular systolic function. Mild RV dilation. Mild biatrial dilation. Mild MR, mild TR. Electronically signed by : Keri Hills MD 03/24/2025 20:41:07
== END 2025-03-24 23:59 | disposition home or self-care (01) ==
LOC: RT 12:53
PROVIDERS: PCP Nurse Practitioner Family; Visit Provider Internal Medicine
DX: Z01.810 Encounter for preprocedural cardiovascular examination (principal); I08.1 Rheumatic disorders of both mitral and tricuspid valves; I25.10 Atherosclerotic heart disease of native coronary artery without angina pectoris
CPT/HCPCS: 93306

== ENCOUNTER 2025-04-13 10:55 | Outpatient (CLI) | payer MEDICARE, SELFPAY ==
[2025-04-13 16:59] LABS: Alanine Aminotransferase 29 U/L (12-78); Albumin Level 4.7 g/dl (3.5-5.0); Albumin/Globulin Ratio 1.5 (1.1-1.8); Alkaline Phosphatase 66 U/L (38-126); Anion Gap 17.5 mEq/L (5-15); Aspartate Amino Transferase 28 U/L (14-36); Bilirubin,Total 0.9 mg/dl (0.2-1.3); Blood Urea Nitrogen 13 mg/dl (7-17); Calcium 9.4 mg/dl (8.4-10.2); Carbon Dioxide 27 mmol/L (22.0-30.0); Chloride 98 mmol/L (98-107); Creatinine,Serum 0.60 mg/dl (0.52-1.04); Estimated Glomerular Filt Rate 100 ml/min (>60); GFR (African American) 121 ML/MIN (>60); Globulin 3.2 g/dL (1.3-3.2); Glucose 117 mg/dl (74-100); Potassium 4.5 mmoL/L (3.5-5.1); Sodium 138 mmol/L (136-145); Total Protein,Serum 7.9 g/dl (6.3-8.2)
--- OUTSIDE RECORDS SUMMARY | 2025-04-14 10:44 | XMS_ITS | Clinical Summary ---
Author Organization [facility] Address [address] [place] [address] Care Team Providers Care External Grinder Tool Name Role Phone Stella Sanchez APRN Primary Care Provider Allergies Active Allergy Reactions Criticality Noted Date Comments Erythromycin GI Intolerance Low 08/03/2020 Penicillins Rash Low 12/17/2015 Medications aspirin 81 MG EC tablet Take 1 tablet by mouth Daily. Active Casper-3 Fatty Acids (FISH OIL) 1000 MG capsule [...] Care Team (Late st Contact Info) Description 06/29/2025 11:20 AM EST Appointment [facility] [address] [place] [address] 07/13/2025 2:30 PM EST Office Visit [facility] [address] [place] [address] Ania Mejias, ZOOLOGY PROFESSOR [address] [place] [address] Health Maintenance Due Date Last Done Comments DXA SCAN 1960 TDAP/TD VACCINES (1 - Tdap) 1977 COLOGUARD 2003 COLON CANCER SCREENING 5 YEA R SIGMOIDOSCOPY 2003 [address] COLONOGRAPHY 2003 FECAL OCCULT BLOOD TEST 2003 FIT Testing (1 year) 2003 Pneumococcal Vaccine 50+ (1 of 1 - PCV) 02/25/2008 ZOSTER VACCINE (1 of 2) 02/25/2008 ANNUAL WELLNESS VISIT 10/22/2017 HEPATITIS C SCREENING 10/22/2017 INFLUENZA VACCINE 02/13/2025 COVID-19 Vaccine ( - 2024-2 6 season) 2025 06/29/2021, 09/26/2020, 08/29/2020 MAMMOGRAM 12/05/2025 12/06/2023, 0508/2023, 06/13/2022, Additional history exists COLONOSCOPY 08/14/2027 08/14/2022, 10/03/2016 COLORECTAL CANCER SCREENING 08/14/2027 HEMOGLOBIN A1C Discontinued 05/09/2021 Medical Devices Implanted Type Area Structural Steel Erector Device Identifier Shelf Expiration Date Model / Serial / Lot Kt Seal Hemos Abs Floseal Matrx Fast/Prep 5ml - [id number] Implanted:Qty : 1 on 05/16/2021 by Camilla Ramesh MD at [facility] Implant N/A: Abdomen HYGIEIA 11/09/2022 [id number] / / [id number] Procedures Procedure Name Priority Date/Time Associated Diagnosis [...] architectural distortion are present. Camilla Ramesh MD IMG MAMMOGRAPHY ORDERABLES F inal Result * SCANNED - COLONOSCOPY (08/14/2022) Kyrie Gómez MD CHART REVIEW TABS Final Res ult * (ABNORMAL) Hemoglobin A1c (05/09/2021 11:25 AM EDT) Hemoglobin A1C 6.50(H) 4.80 - 5.60 % 05/09/2021 12:34 PM EDT [facility] Blood Venipuncture / Unknown 05/09/2021 11:25 AM EDT 05/09/2021 11:41 AM EDT Narrative [facility] - 05/09/2021 12:34 PM EDT Hemoglobin A1C Ranges: Increased Risk for Diabetes 5.7% to 6.4% Diabetes >= 6.5% Diabetic Goal < 7.0% Camilla Ramesh MD LAB BLOOD ORDERABLES Final R esult [facility]
[address] [place] [address], from Last 3 Months or Most Recently Relevant to Health Maintenance Insurance [id number] [employer] PPO Care Teams External Grinder Tool Relationship Specialty Start Date End Date Stella Sanchez APRN PCP - General Internal Medicine 06/06/22
--- OUTSIDE RECORDS SUMMARY | 2025-04-14 10:44 | XMS_ITS ---
Author Organization [facility] Address [address] [place] [address] Care Team Providers Care Dinkey Operator Name Role Phone Daniel Stella APRN Primary Care Provider [phone] Active Problems Problem Noted Date Diagnosed Date [...] Kristi Ortiz Date of 1960 Phone Email [email or web address] Cancer Treatment Team Provider Phone numbers Care Team Provider: Milo Drummond MD Care Team Provider: Tom Walker MD, ([phone]) Care Team Provider: Camilla Ramesh MD, ([phone]) Care Team Provider: Marilee Macias APRN, ([phone]) Post Treatment Care Team Primary Care Physician Vincent Bobo MD [address] [facility] [address] Background Information Family oncology history Cancer-related [...] I Histology Endometrioid Adenocarcinoma Tumor marker at [facility] N/A Initial Surgery Yes, 05/16/2021 Procedure Type [...] advice of a doctor or other health care associate. Please use these recommendations to talk with [...] your body, see your regular doctor, physician ortho assistant or nurse practitioner. Symptoms to report to [...] provider to override the general recommendations. The [place] [employer] (ACS) cancer screening guidelines for [...] Experts recommend at least 30 minutes of kymzwoux-yz-iedbtznf activity 5 days per week. This can [...] cessation or call the national hotline at 2-007-YYCF-NOW Have regular check-ups: Keep up-to-date on recommended health screening tests, regular blood work, and vaccinations. Get a flu shot annually. Get the pneumococcal vaccine as recommended by your health care team. Don???t forget dental and eye health. The [place] [employer] recommends adults see their dentist at least once per year. The [place] [employer] recommends adults have their eyesexamined every two years until age 60, then annually. If you wear corrective lenses, have diabetes,or have a family history of eye disease it may be recommended that you be seen more frequently. 7 [facility] [address] [address]
== END 2025-04-13 23:59 ==
LOC: LAB.DROPOF 04-14 10:38
PROVIDERS: PCP Nurse Practitioner Family; Visit Provider Nurse Practitioner Family
DX: E11.9 Type 2 diabetes mellitus without complications (principal)
CPT/HCPCS: 80053

== ENCOUNTER 2025-05-15 13:47 | Outpatient (RCR) | payer MEDICARE, SELFPAY | END 2025-05-15 23:59 | disposition home or self-care (01) | LOC: PT 13:47 | PROVIDERS: PCP Nurse Practitioner Family; Visit Provider Orthopaedic Surgery | DX: Z47.89 Encounter for other orthopedic aftercare (principal); Z96.652 Presence of left artificial knee joint | CPT/HCPCS: 97163 ==

== ENCOUNTER 2025-06-10 11:00 | Outpatient (RCR) | payer MEDICARE, SELFPAY | END 2025-06-10 23:59 | disposition home or self-care (01) | LOC: PT 11:00 | PROVIDERS: PCP Nurse Practitioner Family; Visit Provider Orthopaedic Surgery | DX: Z47.89 Encounter for other orthopedic aftercare (principal); Z96.652 Presence of left artificial knee joint | CPT/HCPCS: 97110; 97140; 97530 ==

== ENCOUNTER 2025-06-23 15:00 | Outpatient (RCR) | payer MEDICARE, SELFPAY | END 2025-06-23 23:59 | disposition home or self-care (01) | LOC: PT 15:00 | PROVIDERS: PCP Nurse Practitioner Family; Visit Provider Orthopaedic Surgery | DX: Z47.1 Aftercare following joint replacement surgery (principal); Z96.652 Presence of left artificial knee joint | CPT/HCPCS: 97110 ==